=== PATIENT | female | born 1980 | race Caucasian/White ===

== ENCOUNTER → 2017-02-07 | Outpatient (CLI) | payer BC ==
[~2017-02-07] MED LIST: CLARITIN 1010 MG/TAB PO; LEVSIN 0.10.125 MG/T PO; MICROGESTIN 1/21 TAB PO; ZOVIRAX400 MG PO
== END ==
LOC: MC.RAD 14:00
DX: N63 Unspecified lump in breast (principal)

== ENCOUNTER → 2017-08-29 | Outpatient (CLI) | payer BC | LOC: COL.RAD 10:13 | DX: R10.13 Epigastric pain (principal) ==

== ENCOUNTER → 2019-07-25 | Outpatient (CLI) | payer BC | LOC: COL.RAD 07-22 09:45 | DX: R74.8 Abnormal levels of other serum enzymes (principal) ==